=== PATIENT | male | born 1950 | race Caucasian/White ===

== ENCOUNTER → 2016-06-20 | Outpatient (CLI) | payer OTHER ==
[~2016-06-20] MED LIST: BARIUM SUSPENSION 2.1% (VANILLA SILQ) 450 ML PO ONE; CATHETER FLUSH 10 ML SYR IV PRN; HYDR-707 PO; IOHEXOL 350 MG/ML 100 ML (OMNIPAQUE 350) VIAL IV ONE; NS 100 ML (IVPB) BAG IV ONE
--- NOTE | 2016-06-20 13:14 | Diagnostic Imaging Report ---
PROCEDURE: CT abdomen and pelvis with contrast. TECHNIQUE: Multiple contiguous axial images were obtained through the abdomen and pelvis after administration of intravenous contrast. INDICATION: Recently diagnosed with prostate cancer. COMPARISON STUDIES: None. FINDINGS: The lung bases are clear. A small hiatal hernia is present. The liver, gallbladder, spleen, pancreas, right adrenal gland, and kidneys are normal. The left adrenal gland has some mild thickening with no focal mass. Moderate arterial sclerosis is present. The aorta measures up to 3.1 cm. The prostate gland is of normal size measuring 3.9 x 3.6 cm. There is some haziness of the periprostatic fat with some more focal stranding in the 7 o'clock position. No definite invasion is seen. Urinary bladder appears normal. No ascites or abnormal adenopathy is present. Degenerative changes are seen in the spine and sacroiliac joints with no evidence of osseous metastases. IMPRESSION: 1. The prostate gland is of normal size. This is inhomogeneous with ill-defined nodules within it. There is some haziness of the periprostatic fat. 2. No osseous metastases are seen. Degenerative changes are present. 3. A small hiatal hernia is present. 4. Arterial sclerosis is present with a small aortic aneurysm. 6. There is thickening of the left adrenal gland with no focal nodule. Dictated by: Dictated on workstation # [id number]
--- NOTE | 2016-06-20 20:13 | Diagnostic Imaging Report ---
Whole body bone scan. TECHNIQUE: After the intravenous administration of 25.5 mCi of Technetium 99m MDP, whole body delayed phase bone scan images were obtained with lateral views of the head and neck and the chest regions. INDICATION: Prostate cancer. FINDINGS: There are intense foci of increased interstitial uptake seen along the anterior left fourth and fifth ribs and adjacent faint activity in the anterior aspect of the left sixth rib. No suspicious activity in the spine or the right ribs. Renal and bladder activity from excretion of the tracer is seen. Mild increased activity in the lower cervical spine is probably degenerative. IMPRESSION: Intense foci of activity along the anterior left fourth and fifth ribs and lesser prominent activity in the anterior sixth rib are favored to be posttraumatic. Correlate clinically and with rib radiographs. A 3-4 month followup bone scan also would probably demonstrate decreased activity in the ribs. Dictated by: Dictated on workstation # [id number]
== END ==
LOC: CARD 11:51
PROVIDERS: ATTEND Urology
DX: C61 Malignant neoplasm of prostate (principal)
CPT/HCPCS: 74177; 78306